=== PATIENT | male | born 1985 | race Hispanic/Latino ===

== ENCOUNTER 2024-11-08 08:57 | Emergency (ER) | payer SELFPAY ==
[2024-11-08 09:12] VITALS: BP 148/89
[2024-11-08 09:20] VITALS: BP 135/87
[2024-11-08] MEDS ORDERED: SODIUM CHLORIDE 0.9% 1,000 ML IV ONE (09:25)
[2024-11-08 09:30] VITALS: BP 127/82
[2024-11-08 09:40] LABS: BASO% 0.6 % (0-3); EOS% 0.9 % (0-8); HEMATOCRIT 46.9 % (39.0-50.0); HEMOGLOBIN 16.4 g/dl (14.0-18.0); IMMATURE GRANULOCYTES 0.2 % (0.0-5.0); LYMPH% 24.7 % (15-41); MEAN CELL VOLUME 81.6 fL CALC (80.0-100.0); MEAN CORPUSCULAR HGB 28.5 pG CALC (26.0-32.0); MONO% 6.2 % (2-13); NEUT# 4.44 thou/uL (1.82-7.42); NEUT% 67.4 % (42-76); RED BLOOD COUNT 5.75 mill/uL (4.70-6.10); RED CELL DISTRI WIDTH 11.8 % (11.5-15.5)
[2024-11-08 09:50] LABS: ALBUMIN 4.4 g/dL (3.2-5.0); BILIRUBIN, TOTAL 1.2 mg/dL (0.2-1.3); CREATININE 0.7 mg/dL (0.7-1.3); POTASSIUM 3.9 mmol/l (3.5-5.1); TOTAL PROTEIN 7.3 g/dL (6.3-8.2)
[2024-11-08 10:00] VITALS: BP 143/90
[2024-11-08 10:30] VITALS: BP 128/81
[2024-11-08 10:40] LABS: URINE BILIRUBIN - DIPSTICK Negative (NEGATIVE); URINE BLOOD DIPSTICK Negative (NEGATIVE); URINE GLUCOSE - DIPSTICK Negative (NEGATIVE); URINE KETONE Negative (NEGATIVE); URINE LEUK ESTERASE Negative (NEGATIVE); URINE NITRITE - DIPSTICK Negative (Negative); URINE PH 7.5 (4.5-8.0); URINE PROTEIN - DIPSTICK Negative (NEG-TRACE); URINE UROBILINOGEN - DIPSTICK 0.2 E.U./dL (0.2)
[2024-11-08 10:44] LABS: URINE COLOR Yellow
[2024-11-08] MEDS ORDERED: MECLIZINE25 MG PO (10:55)
[2024-11-08 11:00] VITALS: BP 127/80
== END 2024-11-08 11:09 | disposition home or self-care (01) | DRG 149 ==
LOC: ED 08:57
PROVIDERS: Emergency Medicine
DX: R42 Dizziness and giddiness (principal)